=== PATIENT | female | born 1995 | race Two or more races ===

== ENCOUNTER 2021-03-10 20:07 | Inpatient (IN) | payer MEDICAID, OTHER ==
[~2021-03-10] VITALS: Ht 172.7 cm; Wt 84.1 kg
[2021-03-10 21:28] LABS: Basophils # (auto) 0 10 ^3/uL (0-0.2); Basophils % (auto) 0.3 % (0.0-2.0); Eosinophils # (auto) 0.1 10 ^3/uL (0-0.8); Eosinophils % (auto) 1.5 % (0.0-7.0); Hematocrit 41.8 % (36.0-46.0); Hemoglobin 14.2 g/dL (12.2-16.2); Lymphocytes # (auto) 3.2 10 ^3/uL (0.4-5.4); Lymphocytes % (auto) 39.3 % (10.0-50.0); Mean Corpuscular Hemoglobin 31.4 pg (28.0-32.0); Mean Corpuscular Hgb Conc. 33.9 g/dL (32.0-36.0); Mean Corpuscular Volume 92.7 fL (80.0-100.0); Monocytes # (auto) 0.5 10 ^3/uL (0-1.3); Monocytes % (auto) 6.5 % (0.0-12.0); Neutrophils # (auto) 4.2 10 ^3/uL (1.6-8.6); Neutrophils % (auto) 52.4 % (37.0-80.0); Nucleated Red Blood Cells % 0.3 %; Red Blood Cells 4.51 10^6/uL (4.0-5.20); Red Cell Distribution Width 13.5 % (11.8-14.3)
[2021-03-10 21:42] LABS: INR 0.98 (0.9-1.15)
[2021-03-10 21:46] LABS: Albumin 3.9 g/dL (3.4-5.0); Calcium 8.9 mg/dL (8.5-10.1); Potassium 3.8 mmol/L (3.5-5.1)
[2021-03-10 21:50] LABS: Bilirubin, Total 0.3 mg/dL (0.2-1.0)
[2021-03-11] MEDS ORDERED: LACTATED RINGER'S 1,000 ML IV ONE (00:30)
[2021-03-11] MEDS ORDERED: SUCCINYLCHOLINE CHLORIDE 20 MG/ML 10ML VIAL IV ONE (05:18)
[2021-03-11] MEDS ORDERED: FAMOTIDINE (10MG/ML) 2ML VL IV ONE (05:26)
[2021-03-11] MEDS ORDERED: PROPOFOL 10 MG/ML 20 ML IV ONE (05:28)
[2021-03-11] MEDS ORDERED: KETAMINE HCL 10 ML ONE (05:28)
[2021-03-11] MEDS ORDERED: PHENYLEPHRINE HCL 10 MG/ML VL ONE (05:28)
[2021-03-11] MEDS ORDERED: DexAMETHasone SOD PHOS 10MG/1ML VIAL INJ ONE (05:28)
[2021-03-11] MEDS ORDERED: ePHEDrine SULFATE 50 MG/ML AMP ONE (05:28)
[2021-03-11] MEDS ORDERED: ONDANSETRON HCL 4 MG/2 ML VIAL ONE (05:28)
[2021-03-11] MEDS ORDERED: KETOROLAC TROMETH 30 MG/ML 1ML VIAL ONE (05:28)
[2021-03-11] MEDS ORDERED: GLYCOPYRROLATE 0.2 MG/ML 1ML VIAL ONE ×2 (05:28→06:21)
[2021-03-11] MEDS ORDERED: fentaNYL CITRATE 100 MCG/2 ML VL ONE ×2 (05:28→06:27)
[2021-03-11] MEDS ORDERED: HYDROmorphone HCL 2 MG/ML VL ONE (05:28)
[2021-03-11] MEDS ORDERED: MIDAZOLAM HCL 1MG/1ML-2 ML VIAL ONE (05:30)
[2021-03-11] MEDS ORDERED: LIDOCAINE 2% (LOCAL ANESTH.) PF 5ml SDV ONE (05:30)
[2021-03-11] MEDS ORDERED: ROCURONIUM 10MG/ML 10ML VIAL IV ONE (05:33)
[2021-03-11 05:34] LABS: Urine Amorphous Crystal FEW /hpf (None Seen); Urine Bacteria FEW /hpf (None Seen); Urine Blood 3+ /uL (Negative); Urine Mucus FEW (None Seen); Urine Specific Gravity 1.015 (1.001-1.035); Urine WBC 7 /hpf (0 - 5)
[2021-03-11] MEDS ORDERED: ONDANSETRON HCL 4 MG/2 ML VIAL IV PRN ×2 (05:45→06:45)
[2021-03-11] MEDS ORDERED: MORPHINE SULF INJ 2 MG/ML SYRINGE 1ML IV PRN (05:45)
[2021-03-11] MEDS: LACTATED RINGER'S 1,000 ML IV SCH ×3 (05:45→17:30)
[2021-03-11] MEDS ORDERED: NEOSTIGMINE 1 MG/ML INJ (10mg/10ML VIAL) ONE (06:21)
[2021-03-11] MEDS ORDERED: HYDROmorphone HCL 2 MG/ML VL IV PRN ×2 (06:45→07:00)
[2021-03-11 08:32] VITALS: BP 124/71
[2021-03-11] MEDS ORDERED: CALC500C3 PO (08:50)
[2021-03-11] MEDS: ceFAZolin 1GM/50ML 50 ML IV SCH ×2 (10:00→17:56)
[2021-03-11 12:50] VITALS: BP 116/60
[2021-03-11] MEDS ORDERED: BISACODYL 10 MG RECT SUPP PR PRN (17:00)
[2021-03-11] MEDS ORDERED: HYDROcodone-ACET 10/325MG TAB PO PRN (17:00)
[2021-03-11 17:13] VITALS: BP 111/65
[2021-03-11 20:00] VITALS: BP 98/42
[2021-03-11 20:34] LABS: Basophils # (auto) 0 10 ^3/uL (0-0.2); Eosinophils # (auto) 0 10 ^3/uL (0-0.8); Hematocrit 37.6 % (36.0-46.0); Hemoglobin 12.8 g/dL (12.2-16.2); Lymphocytes % (auto) 8.8 % (10.0-50.0); Mean Corpuscular Hemoglobin 31.4 pg (28.0-32.0); Mean Corpuscular Volume 92.2 fL (80.0-100.0); Monocytes # (auto) 0.5 10 ^3/uL (0-1.3); Monocytes % (auto) 4.8 % (0.0-12.0); Neutrophils # (auto) 9.5 10 ^3/uL (1.6-8.6); Neutrophils % (auto) 86.4 % (37.0-80.0); Red Blood Cells 4.07 10^6/uL (4.0-5.20); Red Cell Distribution Width 13.3 % (11.8-14.3)
[2021-03-11] MEDS: DOCUSATE SOD 100 MG CAP PO SCH (21:58)
[2021-03-11 22:00] VITALS: BP 99/42
[2021-03-12] MEDS: LACTATED RINGER'S 1,000 ML IV SCH ×3 (00:02→17:30)
[2021-03-12] MEDS: ceFAZolin 1GM/50ML 50 ML IV SCH ×4 (00:03→23:59)
[2021-03-12 05:00] VITALS: BP 92/49
[2021-03-12] MEDS ORDERED: HYDROcodone-ACET 10/325MG TAB PO PRN (05:00)
[2021-03-12 06:44] LABS: Basophils # (auto) 0 10 ^3/uL (0-0.2); Basophils % (auto) 0.1 % (0.0-2.0); Eosinophils # (auto) 0 10 ^3/uL (0-0.8); Eosinophils % (auto) 0.2 % (0.0-7.0); Hematocrit 35.1 % (36.0-46.0); Hemoglobin 12.5 g/dL (12.2-16.2); Lymphocytes % (auto) 20.2 % (10.0-50.0); Mean Corpuscular Hemoglobin 32.7 pg (28.0-32.0); Mean Corpuscular Hgb Conc. 35.5 g/dL (32.0-36.0); Mean Corpuscular Volume 92.1 fL (80.0-100.0); Monocytes # (auto) 0.6 10 ^3/uL (0-1.3); Monocytes % (auto) 6.4 % (0.0-12.0); Neutrophils # (auto) 7.2 10 ^3/uL (1.6-8.6); Neutrophils % (auto) 73.1 % (37.0-80.0); Red Blood Cells 3.81 10^6/uL (4.0-5.20); Red Cell Distribution Width 13.2 % (11.8-14.3); White Blood Cell 9.9 10^3/uL (4.4-10.8)
[2021-03-12 08:00] VITALS: BP 108/61
[2021-03-12 08:43] VITALS: BP 108/61
[2021-03-12] MEDS: DOCUSATE SOD 100 MG CAP PO SCH ×2 (10:03→22:25)
[2021-03-12 13:00] VITALS: BP 114/16
[2021-03-12 17:21] VITALS: BP 105/70
[2021-03-12 22:00] VITALS: BP 107/58
[2021-03-13 05:00] VITALS: BP 107/53
[2021-03-13] MEDS: LACTATED RINGER'S 1,000 ML IV SCH (06:00)
[2021-03-13] MEDS: ceFAZolin 1GM/50ML 50 ML IV SCH (07:53)
[2021-03-13 08:00] VITALS: BP 107/60
[2021-03-13] MEDS: DOCUSATE SOD 100 MG CAP PO SCH (10:04)
[2021-03-13 13:00] VITALS: BP 114/63
[2021-03-13 16:44] VITALS: BP 114/63
== END 2021-03-13 17:25 | disposition home or self-care (01) | DRG 545 ==
LOC: ER 20:09 → OVERFLOW 03-11 00:17 → WEST WING 03-11 08:10
PROVIDERS: ADMIT Obstetrics & Gynecology; ATTEND Obstetrics & Gynecology
PROC: 0D9W0ZZ Drainage of Peritoneum, Open Approach (ICD-10-PCS; 2021-03-11)
PROC: 0UB50ZZ Excision of Right Fallopian Tube, Open Approach (ICD-10-PCS; principal; 2021-03-11 05:45)
DX: O00.101 Right tubal pregnancy without intrauterine pregnancy (principal); K66.1 Hemoperitoneum; O08.89 Other complications following an ectopic and molar pregnancy; R71.0 Precipitous drop in hematocrit; F17.210 Nicotine dependence, cigarettes, uncomplicated; Z20.822 Contact with and (suspected) exposure to COVID-19
CPT/HCPCS: 36415; 76801; 76817; 80053; 81001; 84702; 85025; 85610; 86850; 86900; 86901; 86920; 87426; 93005; 96360; 96361; G0378; J0330; J0690; J1100; J1885; J2001; J2250; J2405; J2704; J3490